=== PATIENT | female | born 1975 | race American Indian/Alaskan Native ===

== ENCOUNTER 2022-03-28 07:50 | Inpatient (IN) | payer SELFPAY ==
[2022-03-28 08:49] LABS: Hematocrit 28.3 % (30.3-42.9); Hemoglobin 8.7 gm/dl (10.1-14.3); Mean Corpuscular HGB Conc 31 % (30-34); Mean Corpuscular Volume 81 fl (79-97); Platelet Count 203 K/mm3 (140-440); Red Blood Count 3.51 M/mm3 (3.65-5.03)
[2022-03-28 08:53] LABS: Red Cell Distribution Width 25.4 % (13.2-15.2)
[2022-03-28 08:59] LABS: INR 1.03 (0.87-1.13)
[2022-03-28 09:14] LABS: Alanine Aminotransferase 35 units/L (7-56); Albumin 2.5 g/dL (3.9-5); Blood Urea Nitrogen 3 mg/dL (7-17); Calcium 7.8 mg/dL (8.4-10.2); Hemolysis Index 3
--- NOTE | 2022-03-28 09:14 | XRay Report ---
XR chest routine 2V INDICATION / CLINICAL INFORMATION: Dyspnea. COMPARISON: None available. FINDINGS: SUPPORT DEVICES: None. HEART /PULMONARY VASCULATURE: No significant abnormality. LUNGS / PLEURA: No acute pulmonary or pleural abnormality. No pneumothorax. ADDITIONAL FINDINGS: No significant additional findings. IMPRESSION: 1. No acute findings. Signer Name: Buzz Miranda MD Signed: 03/28/2022 9:10 AM Workstation Name: [id number]
[2022-03-28 09:15] LABS: BUN/Creatinine Ratio 6
[2022-03-28 10:50] LABS: Basophils % (Manual) 0 % (0.0-1.8); Total Cells Counted 100
[2022-03-28 10:55] LABS: Anisocytosis Few; Hypochromasia 1+; Large Platelets Rare; Macrocytosis Few; Platelet Estimate Consistent w Auto; Poikilocytosis 1+; Stomatocytes Rare; Target Cells 1+
[2022-03-28] MEDS ORDERED: POTASSIUM CHLORIDE ER 20 MEQ TAB PO ONE (15:31)
[2022-03-28] MEDS ORDERED: MORPHINE 4 MG/1 ML INJ IV ONE (15:32)
--- NOTE | 2022-03-28 15:37 | Emergency Department Report ---
ED General Adult HPI - General Chief complaint: Dyspnea/Respdistress Stated complaint: CHEST PAIN, SOB PUI?: No Time Seen by Provider: 03/28/22 15:08 Source: patient Mode of arrival: Ambulatory Limitations: No Limitations - History of Present Illness Initial comments: This is a pleasant 46-year-old female who denies medical history of diabetes hypertension or myocardial infarction came in today with concerns of 3-day history of chest pain which patient describes as sharp in the center of the midsternal area. According patient she was not doing anything with that started about 3 days ago. Patient states that it is worse when she takes deep breath. Patient denies chest pain radiate anywhere else. Patient denies any other associate symptoms or anything else makes it better what makes it worse. Patient current denies any other symptoms such as fever chill night sweat dizziness blurred vision lightheadedness headache tinnitus ear pain runny nose sore throat loss of taste loss of smell chest pain palpitation cough abdominal pain nausea vomiting diarrhea constipation joint pain muscle pain new rash and heat or cold intolerance. - Related Data Allergies Allergy/AdvReac Type Severity Reaction Status Date / Time No Known Allergies Allergy Unverified 03/28/22 08:33 ED Review of Systems ROS: Stated complaint: CHEST PAIN, SOB Other details as noted in HPI Comment: All other systems reviewed and negative Constitutional: no symptoms reported Eyes: as per HPI ENT: as per HPI Respiratory: no symptoms reported Cardiovascular: chest pain (SHARP THAT'S WORSE WITH TAKING BREATH) Endocrine: no symptoms reported Gastrointestinal: as per HPI Genitourinary: as per HPI Musculoskeletal: as per HPI Skin: as per HPI Neurological: as per HPI Psychiatric: as per HPI Hematological/Lymphatic: as per HPI ED Past Medical Hx - Past Medical History Previous Medical History?: No - Surgical History Past Surgical History?: No ED Physical Exam - General Limitations: No Limitations General appearance: alert, in no apparent distress - Head Head exam: Present: atraumatic, normocephalic, normal inspection - Eye Eye exam: Present: normal appearance, PERRL, EOMI Pupils: Present: normal accommodation - ENT ENT exam: Present: normal exam, normal orophraynx - Neck Neck exam: Present: normal inspection, full ROM - Respiratory Respiratory exam: Present: normal lung sounds bilaterally - Cardiovascular Cardiovascular Exam: Present: normal rhythm, tachycardia, normal heart sounds - GI/Abdominal GI/Abdominal exam: Present: soft, distended - Extremities Exam Extremities exam: Present: normal inspection, full ROM, normal capillary refill - Back Exam Back exam: Present: normal inspection, full ROM - Neurological Exam Neurological exam: Present: alert, altered, oriented X3, CN II-XII intact, normal gait - Psychiatric Psychiatric exam: Present: normal affect, normal mood - Skin Skin exam: Present: warm, dry, intact, normal color ED Course Vital Signs 03/28/22 03/28/22 03/28/22 08:28 14:46 14:50 Temperature 98.4 F Pulse Rate 106 H 102 H 103 H Respiratory 19 20 18 Rate Blood Pressure Blood Pressure 121/97 [Left] O2 Sat by Pulse 99 98 Oximetry 03/28/22 03/28/22 03/28/22 14:56 15:00 15:07 Temperature Pulse Rate 102 H 102 H 101 H Respiratory 25 H 18 20 Rate Blood Pressure 177/89 177/89 Blood Pressure [Left] O2 Sat by Pulse 99 100 99 Oximetry 03/28/22 03/28/22 03/28/22 15:11 15:15 15:21 Temperature Pulse Rate 104 H 101 H 104 H Respiratory 19 19 16 Rate Blood Pressure 160/90 160/90 162/104 Blood Pressure [Left] O2 Sat by Pulse 99 100 100 Oximetry 03/28/22 03/28/22 03/28/22 15:25 15:31 15:35 Temperature Pulse Rate 104 H 109 H 106 H Respiratory 17 32 H 24 Rate Blood Pressure 162/104 178/82 178/82 Blood Pressure [Left] O2 Sat by Pulse 100 98 99 Oximetry 03/28/22 03/28/22 03/28/22 15:41 15:45 15:51 Temperature Pulse Rate 109 H 107 H 109 H Respiratory 18 22 25 H Rate Blood Pressure 178/82 178/82 169/94 Blood Pressure [Left] O2 Sat by Pulse 99 100 100 Oximetry 03/28/22 03/28/22 03/28/22 15:55 16:01 16:05 Temperature Pulse Rate 113 H 110 H 110 H Respiratory 21 26 H 18 Rate Blood Pressure 169/94 169/94 169/94 Blood Pressure [Left] O2 Sat by Pulse 98 99 99 Oximetry 03/28/22 03/28/22 03/28/22 16:11 16:15 16:21 Temperature Pulse Rate 109 H 109 H 110 H Respiratory 19 22 20 Rate Blood Pressure 169/94 169/94 157/92 Blood Pressure [Left] O2 Sat by Pulse 99 100 99 Oximetry 03/28/22 03/28/22 03/28/22 16:25 16:31 16:35 Temperature Pulse Rate 110 H 110 H 109 H Respiratory 21 16 21 Rate Blood Pressure 157/92 157/92 157/92 Blood Pressure [Left] O2 Sat by Pulse 99 99 97 Oximetry 03/28/22 03/28/22 03/28/22 16:41 16:45 16:51 Temperature Pulse Rate 108 H 109 H 109 H Respiratory 17 20 19 Rate Blood Pressure 157/92 157/92 144/83 Blood Pressure [Left] O2 Sat by Pulse 99 97 99 Oximetry 03/28/22 03/28/22 03/28/22 16:55 17:01 17:05 Temperature Pulse Rate 107 H 113 H 109 H Respiratory 19 18 22 Rate Blood Pressure 144/83 144/83 144/83 Blood Pressure [Left] O2 Sat by Pulse 98 99 98 Oximetry 03/28/22 03/28/22 03/28/22 17:11 17:15 17:21 Temperature Pulse Rate 112 H 111 H 109 H Respiratory 18 23 21 Rate Blood Pressure 144/83 144/83 128/85 Blood Pressure [Left] O2 Sat by Pulse 98 99 98 Oximetry 03/28/22 03/28/22 03/28/22 17:25 17:31 17:35 Temperature Pulse Rate 109 H 109 H 113 H Respiratory 16 20 21 Rate Blood Pressure 128/85 128/85 128/85 Blood Pressure [Left] O2 Sat by Pulse 99 99 100 Oximetry 03/28/22 03/28/22 03/28/22 17:41 17:45 17:51 Temperature Pulse Rate 113 H 119 H 111 H Respiratory 22 17 17 Rate Blood Pressure 128/85 128/85 143/70 Blood Pressure [Left] O2 Sat by Pulse 100 97 99 Oximetry 03/28/22 03/28/22 03/28/22 17:55 18:01 18:05 Temperature Pulse Rate 109 H 112 H 111 H Respiratory 14 19 24 Rate Blood Pressure 143/70 143/70 143/70 Blood Pressure [Left] O2 Sat by Pulse 96 89 94 Oximetry 03/28/22 03/28/22 03/28/22 18:11 18:15 18:21 Temperature Pulse Rate 112 H 112 H 114 H Respiratory 35 H 30 H 26 H Rate Blood Pressure 143/70 143/70 128/71 Blood Pressure [Left] O2 Sat by Pulse 88 90 94 Oximetry 03/28/22 03/28/22 18:25 18:31 Temperature Pulse Rate 114 H 113 H Respiratory 32 H 16 Rate Blood Pressure 128/71 128/71 Blood Pressure [Left] O2 Sat by Pulse 93 90 Oximetry ED Medical Decision Making - Lab Data Result diagrams: 03/28/22 08:38 03/28/22 19:21 - EKG Data -: EKG Interpreted by Me (SINUS TACHY AT 100 WITH PRLONG QT INTERVAL 401 AND 518) EKG shows normal: sinus rhythm Rate: tachycardia Critical care attestation.: If time is entered above; I have spent that time in minutes in the direct care of this critically ill patient, excluding procedure time. ED Disposition Clinical Impression: Hypomagnesemia, Hypokalemia, Hypocalcemia, Prolonged QT interval, D-dimer, elevated Disposition: 09 ADMITTED INPATIENT Is pt being admited?: Yes Does the pt Need Aspirin: No Condition: Stable Time of Disposition: 23:14
[2022-03-28] MEDS ORDERED: MAGNESIUM SULFATE 3 GM in SODIUM CHLORIDE 0.9% 100 ML IV SCH (15:58)
[2022-03-28] MEDS ORDERED: POTASSIUM CHLORIDE 10 MEQ 10 MEQ/100 ML BAG IV SCH (16:00)
[2022-03-28] MEDS: POTASSIUM CHLORIDE 10 MEQ 10 MEQ/100 ML BAG IV SCH ×4 (16:25→20:43)
[2022-03-28] MEDS ORDERED: CALC GLUCONATE 1GM/NS 100 ML 1 GM/100 ML BAG IV SCH (17:00)
[2022-03-28] MEDS ORDERED: HYDROmorphone 0.5 MG/0.5 ML INJ IV ONE (17:32)
[2022-03-28] MEDS ORDERED: ONDANSETRON 4 MG/2 ML INJ IV ONE (17:33)
[2022-03-28 19:53] LABS: Alanine Aminotransferase 34 units/L (7-56); Albumin 2.6 g/dL (3.9-5); Blood Urea Nitrogen 5 mg/dL (7-17); Calcium 7.6 mg/dL (8.4-10.2); Hemolysis Index 0
[2022-03-28 19:58] LABS: BUN/Creatinine Ratio 10
--- NOTE | 2022-03-28 20:47 | Cat Scan Report ---
CTA CHEST WITH CONTRAST INDICATION / CLINICAL INFORMATION: sob + ddimer. TECHNIQUE: Axial CT images were obtained through the chest after injection of IV contrast. 3 plane TN P and/or 3D reconstructions were produced. All CT scans at this location are performed using CT dose reduction for ALARA by means of automated exposure control. COMPARISON: None available. FINDINGS: PULMONARY EMBOLUS: None. THORACIC AORTA: No significant abnormality. HEART: No significant abnormality. CORONARY ARTERY CALCIFICATION: Absent -- None. MEDIASTINUM / SHERRY: No significant abnormality. PLEURA: No pleural effusion. No pneumothorax. LUNGS: No acute air space or interstitial disease. ADDITIONAL FINDINGS: None. UPPER ABDOMEN: Hepatic steatosis and gallstones. SKELETAL STRUCTURES: No significant osseous abnormality. IMPRESSION: 1. No CT evidence for pulmonary embolism. 2. No acute findings. 3. Hepatic steatosis and cholelithiasis. Signer Name: Juan Antonio Portillo MD Signed: 03/28/2022 8:43 PM Workstation Name: [id number]
[2022-03-28] MEDS ORDERED: MORPHINE 2 MG/1 ML INJ IV ONE (20:50)
[2022-03-28] MEDS ORDERED: PROMETHAZINE 25 MG TAB PO ONE (21:03)
[2022-03-28 21:49] LABS: Creatine Kinase MB 1.5 ng/mL (0.0-4.0)
[2022-03-28] MEDS: ENOXAPARIN 100 MG/1 ML INJ SUB-Q SCH (21:56)
[2022-03-28] MEDS ORDERED: MORPHINE 4 MG/1 ML INJ IV PRN ×2 (23:16)
[2022-03-28] MEDS ORDERED: ACETAMINOPHEN 325 MG TAB PO PRN ×2 (23:16)
[2022-03-28] MEDS ORDERED: DEXTROSE 50% IN WATER (25GM) 50 ML SYRINGE IV PRN (23:16)
[2022-03-28] MEDS ORDERED: MAGNESIUM HYDROXIDE (MOM) ORAL LIQD UDC PO PRN (23:16)
[2022-03-28] MEDS ORDERED: MORPHINE 2 MG/1 ML INJ IV PRN (23:16)
[2022-03-28] MEDS ORDERED: NITROGLYCERIN 0.4 MG TAB SUBL SL PRN (23:16)
[2022-03-28] MEDS ORDERED: ONDANSETRON 4 MG/2 ML INJ IV PRN (23:16)
[2022-03-28] MEDS ORDERED: traMADol 50 MG TAB PO PRN (23:16)
--- NOTE | 2022-03-28 23:30 | History and Physical Report ---
History of Present Illness Date of examination: 03/28/22 Date of admission: 03/28/2022 Chief complaint: Chest Pain History of present illness: 46-year-old -[place] female with known history of hypertension, diabetes mellitus presenting to the emergency room today with a 3-day history of chest pain. Chest pain is said to be midsternal, sharp and that remained constant. Pain is occasionally worse upon taking a deep breath. Denies any radiation. Patient denies any headache or dizziness and denies any diaphoresis. She indicates she has been having nausea and vomiting for the past 3 days but denies any diarrhea. She denies any sick contacts and no recent travel and no contact with anyone with COVID-19. She denies any fever or chills. Work-up in the emergency room today, lab was significant for hemoglobin of 8.7 and hematocrit of 28.3 potassium of 2.8, AST of 126, magnesium of 1.2 and calcium of 7.8. Chest x-ray unremarkable. CT angiogram of the chest was negative for pulmonary embolism. However there is hepatic steatosis and cholelithiasis. Past History Past Surgical History: Other (Gastric Bypass) Family history: no significant family history Medications and Allergies Allergies Allergy/AdvReac Type Severity Reaction Status Date / Time No Known Allergies Allergy Unverified 03/28/22 08:33 Active Meds: Active Medications Acetaminophen (Acetaminophen 325 Mg Tab) 650 mg PO Q4H PRN PRN Reason: Pain MILD(1-3)/Fever >100.5/JANG Acetaminophen (Acetaminophen 325 Mg Tab) 650 mg PO Q6H PRN PRN Reason: Pain, Mild (1-3) Aspirin (Aspirin Ec 325 Mg Tab) 325 mg PO QDAY ASHLEY Dextrose (Dextrose 50% In Water (25gm) 50 Ml Syringe) 50 ml IV Q30MIN PRN; Protocol PRN Reason: Hypoglycemia Dextrose (Dextrose 50% In Water (25gm) 50 Ml Syringe) 50 ml IV Q30MIN PRN; Protocol PRN Reason: Hypoglycemia Enoxaparin Sodium (Enoxaparin 100 Mg/1 Ml Inj) 90 mg 1 mg/kg (90 mg) SUB-Q Q12HR ASHLEY; Protocol Last Admin: 03/28/22 21:56 Dose: 90 mg CALC GLUCONATE 1GM/NS 100 ML (Calcium Gluonate/Ns 1,000mg/100ml) 1 gm in 100 mls @ 660 mls/hr IV ONCE ASHLEY Last Admin: 03/28/22 17:29 Dose: 660 mls/hr Insulin Human Lispro (Insulin Lispro 100 Unit/Ml) 0 unit SUB-Q ACHS ASHLEY; Protocol Insulin Human Regular (Insulin Regular, Human 100 Units/1 Ml) 0 units SUB-Q ACHS ASHLEY; Protocol Magnesium Hydroxide (Magnesium Hydroxide (Mom) Oral Liqd Udc) 30 ml PO Q4H PRN PRN Reason: Constipation Morphine Sulfate (Morphine 2 Mg/1 Ml Inj) 2 mg IV Q4H PRN PRN Reason: Pain, Moderate (4-6) Morphine Sulfate (Morphine 4 Mg/1 Ml Inj) 4 mg IV Q4H PRN PRN Reason: Pain , Severe (7-10) Morphine Sulfate (Morphine 4 Mg/1 Ml Inj) 2 mg IV Q5MIN PRN PRN Reason: Chest Pain unrelieved by NTG Nitroglycerin (Nitroglycerin 0.4 Mg Tab Subl) 0.4 mg SL Q5M PRN PRN Reason: Chest Pain Ondansetron HCl (Ondansetron 4 Mg/2 Ml Inj) 4 mg IV Q8H PRN PRN Reason: Nausea And Vomiting Sodium Chloride (Sodium Chloride 0.9% 10 Ml Flush Syringe) 10 ml IV BID ASHLEY Sodium Chloride (Sodium Chloride 0.9% 10 Ml Flush Syringe) 10 ml IV PRN PRN PRN Reason: LINE FLUSH Sodium Chloride (Sodium Chloride 0.9% 10 Ml Flush Syringe) 10 ml IV PRN PRN PRN Reason: LINE FLUSH Tramadol HCl (Tramadol 50 Mg Tab) 50 mg PO Q6H PRN PRN Reason: Pain, Moderate (4-6) Review of Systems Constitutional: no fever, no chills Ears, nose, mouth and throat: no nasal congestion, no sore throat Cardiovascular: chest pain, no palpitations Respiratory: no cough, no shortness of breath Gastrointestinal: nausea, vomiting, diarrhea Genitourinary Female: no pelvic pain, no flank pain, no dysuria Musculoskeletal: no neck pain, no low back pain Integumentary: no rash, no pruritis Neurological: no headaches, no confusion Psychiatric: no anxiety, no depression Endocrine: no polyphagia, no excessive thirst, no polydipsia, no polyuria, no nocturia Exam - Constitutional Vitals: Temp Pulse Resp BP Pulse Ox 98.4 F 113 H 16 128/71 90 03/28/22 08:28 03/28/22 18:31 03/28/22 18:31 03/28/22 18:31 03/28/22 18:31 General appearance: Present: no acute distress, well-nourished - EENT Eyes: Present: PERRL, EOM intact. Absent: scleral icterus ENT: hearing intact, clear oral mucosa, dentition normal - Neck Neck: Present: supple, normal ROM - Respiratory Respiratory effort: normal Respiratory: bilateral: CTA - Cardiovascular Rhythm: regular Heart Sounds: Present: S1 & S2. Absent: gallop, systolic murmur, diastolic murmur, rub, click - Extremities Extremities: no ischemia, pulses intact, pulses symmetrical, normal temperature, normal color, Full ROM Extremity abnormal: edema (Trace bilateral lower extremity edema) Peripheral Pulses: within normal limits - Abdominal General gastrointestinal: Present: soft, non-tender, distended, normal bowel sounds. Absent: mass - Integumentary Integumentary: Present: clear, warm, dry, normal turgor. Absent: rash - Musculoskeletal Musculoskeletal: strength equal bilaterally - Psychiatric Psychiatric: appropriate mood/affect, intact judgment & insight, memory intact, cooperative - Neurologic Neurologic: CNII-XII intact, no focal deficits, moves all extremities HEART Score - HEART Score Troponin: Troponin T < 0.010 ng/mL (0.00-0.029) 03/28/22 15:18 Results - Labs CBC & Chem 7: 03/28/22 08:38 03/28/22 23:43 Labs: Abnormal lab results 03/28/22 03/28/22 03/28/22 Range/Units 08:38 08:38 15:18 RBC 3.51 L (3.65-5.03) M/mm3 Hgb 8.7 L (10.1-14.3) gm/dl Hct 28.3 L (30.3-42.9) % MCH 25 L (28-32) pg RDW 25.4 H (13.2-15.2) % Seg Neuts % (Manual) 89.0 H (40.0-70.0) % Lymphocytes % (Manual) 6.0 L (13.4-35.0) % Nucleated RBC % 1.0 H (0.0-0.9) % Lymphocytes # (Manual) 0.5 L (1.2-5.4) K/mm3 D-Dimer (0-234) ng/mlDDU Potassium 2.8 L* (3.6-5.0) mmol/L Chloride 97.7 L (98-107) mmol/L BUN 3 L (7-17) mg/dL Creatinine 0.5 L (0.6-1.2) mg/dL Glucose 113 H (65-100) mg/dL Calcium 7.8 L (8.4-10.2) mg/dL Magnesium 1.20 L (1.7-2.3) mg/dL Total Bilirubin 1.60 H (0.1-1.2) mg/dL AST 126 H (5-40) units/L Alkaline Phosphatase 305 H (35-129) units/L Albumin 2.5 L (3.9-5) g/dL 03/28/22 03/28/22 Range/Units 16:12 19:21 RBC (3.65-5.03) M/mm3 Hgb (10.1-14.3) gm/dl Hct (30.3-42.9) % MCH (28-32) pg RDW (13.2-15.2) % Seg Neuts % (Manual) (40.0-70.0) % Lymphocytes % (Manual) (13.4-35.0) % Nucleated RBC % (0.0-0.9) % Lymphocytes # (Manual) (1.2-5.4) K/mm3 D-Dimer 360.67 H (0-234) ng/mlDDU Potassium 2.8 L* (3.6-5.0) mmol/L Chloride 96.9 L (98-107) mmol/L BUN 5 L (7-17) mg/dL Creatinine 0.5 L (0.6-1.2) mg/dL Glucose (65-100) mg/dL Calcium 7.6 L (8.4-10.2) mg/dL Magnesium 1.10 L (1.7-2.3) mg/dL Total Bilirubin 1.50 H (0.1-1.2) mg/dL AST 115 H (5-40) units/L Alkaline Phosphatase 326 H (35-129) units/L Albumin 2.6 L (3.9-5) g/dL Assessment and Plan Assessment: 1. Chest pain 2. Hypokalemia 3. Hypomagnesemia 4. Hypocalcemia 5. Elevated liver enzymes 6. Abnormal EKG 7. Diabetes mellitus 8. Hypertension Plan: 1. Patient admitted and placed on telemetry. 2. We will check serial cardiac enzymes. Patient placed on daily aspirin, sublingual nitroglycerin and IV morphine as needed for chest pain. 3. Cardiology evaluation requested. 4. We will replete electrolytes and monitor chemistry. 5. We will resume routine home medications and monitor vital signs closely. 6. Patient placed on sliding scale insulin. We will monitor Accu-Cheks. DVT prophylaxis: Subcutaneous heparin CODE STATUS: Full code
[2022-03-29 00:14] LABS: Blood Urea Nitrogen 5 mg/dL (7-17); Calcium 7.9 mg/dL (8.4-10.2); Hemolysis Index 76
[2022-03-29 00:17] LABS: BUN/Creatinine Ratio 8
[2022-03-29 05:12] LABS: Hematocrit 24.4 % (30.3-42.9); Hemoglobin 7.7 gm/dl (10.1-14.3); Mean Corpuscular HGB Conc 31 % (30-34); Mean Corpuscular Volume 81 fl (79-97); Platelet Count 186 K/mm3 (140-440); Red Blood Count 3.02 M/mm3 (3.65-5.03)
[2022-03-29 05:19] LABS: Red Cell Distribution Width 25.9 % (13.2-15.2)
[2022-03-29 05:20] LABS: BUN/Creatinine Ratio 8; Blood Urea Nitrogen 5 mg/dL (7-17); Calcium 7.8 mg/dL (8.4-10.2); Hemolysis Index 5
[2022-03-29] MEDS ORDERED: INSULIN REGULAR, HUMAN 100 UNITS/1 ML SUB-Q SCH (07:30)
[2022-03-29] MEDS: INSULIN LISPRO 100 UNIT/ML SUB-Q SCH ×4 (08:00→21:42)
[2022-03-29 08:10] LABS: Anisocytosis 2+; Basophils % (Manual) 0 % (0.0-1.8); Eosinophils % (Manual) 0 % (0.0-4.3); Monocytes % (Manual) 0 % (0.0-7.3); Total Cells Counted 100
[2022-03-29 08:11] LABS: Hypochromasia 1+; Platelet Estimate Consistent w Auto; Poikilocytosis 1+; Target Cells 1+
[2022-03-29] MEDS ORDERED: REGADENOSON 0.4 MG/5 ML INJ IV ONE (08:22)
[2022-03-29] MEDS ORDERED: MAGNESIUM SULFATE 2 GM/50 ML BAG IV ONE (09:00)
[2022-03-29] MEDS: ASPIRIN EC 325 MG TAB PO SCH (12:00)
[2022-03-29] MEDS: ENOXAPARIN 100 MG/1 ML INJ SUB-Q SCH (12:06)
--- NOTE | 2022-03-29 12:40 | Consultation ---
History of Present Illness Consult date: 03/29/22 Consult reason: chest pain History of present illness: The patient is a 46-year-old woman who presented to the hospital with poorly characterized, atypical, nonexertional chest pain. Serial ECGs have shown a normal sinus rhythm with mild early repolarization changes, normal ECGs. Troponin levels x3 were normal. Patient has completed a Lexiscan thallium stress test ordered by the medical service, results are pending. Past History Past Surgical History: Other (Gastric Bypass) Family history: no significant family history Medications and Allergies Allergies Allergy/AdvReac Type Severity Reaction Status Date / Time No Known Allergies Allergy Unverified 03/28/22 08:33 Active Meds: Active Medications Acetaminophen (Acetaminophen 325 Mg Tab) 650 mg PO Q4H PRN PRN Reason: Pain MILD(1-3)/Fever >100.5/JANG Aspirin (Aspirin Ec 325 Mg Tab) 325 mg PO QDAY ASHLEY Last Admin: 03/29/22 12:00 Dose: Not Given Dextrose (Dextrose 50% In Water (25gm) 50 Ml Syringe) 50 ml IV Q30MIN PRN; Protocol PRN Reason: Hypoglycemia Enoxaparin Sodium (Enoxaparin 100 Mg/1 Ml Inj) 90 mg 1 mg/kg (90 mg) SUB-Q Q12HR ASHLEY; Protocol Last Admin: 03/29/22 12:06 Dose: 90 mg Insulin Human Lispro (Insulin Lispro 100 Unit/Ml) 0 unit SUB-Q ACHS ASHLEY; Protocol Last Admin: 03/29/22 08:00 Dose: Not Given Magnesium Hydroxide (Magnesium Hydroxide (Mom) Oral Liqd Udc) 30 ml PO Q4H PRN PRN Reason: Constipation Morphine Sulfate (Morphine 2 Mg/1 Ml Inj) 2 mg IV Q4H PRN PRN Reason: Pain, Moderate (4-6) Last Admin: 03/29/22 02:09 Dose: 2 mg Morphine Sulfate (Morphine 4 Mg/1 Ml Inj) 4 mg IV Q4H PRN PRN Reason: Pain , Severe (7-10) Morphine Sulfate (Morphine 4 Mg/1 Ml Inj) 2 mg IV Q5MIN PRN PRN Reason: Chest Pain unrelieved by NTG Nitroglycerin (Nitroglycerin 0.4 Mg Tab Subl) 0.4 mg SL Q5M PRN PRN Reason: Chest Pain Ondansetron HCl (Ondansetron 4 Mg/2 Ml Inj) 4 mg IV Q8H PRN PRN Reason: Nausea And Vomiting Sodium Chloride (Sodium Chloride 0.9% 10 Ml Flush Syringe) 10 ml IV BID ASHLEY Last Admin: 03/29/22 12:07 Dose: 10 ml Sodium Chloride (Sodium Chloride 0.9% 10 Ml Flush Syringe) 10 ml IV PRN PRN PRN Reason: LINE FLUSH Tramadol HCl (Tramadol 50 Mg Tab) 50 mg PO Q6H PRN PRN Reason: Pain, Moderate (4-6) Review of Systems Cardiovascular: chest pain, shortness of breath, no orthopnea, no palpitations, no rapid/irregular heart beat, no edema, no syncope, no lightheadedness Physical Examination Vital Signs Temp Pulse Resp BP Pulse Ox 98.4 F 106 H 19 121/97 99 03/28/22 08:28 03/28/22 08:28 03/28/22 08:28 03/28/22 08:28 03/28/22 08:28 General appearance: no acute distress HEENT: Positive: PERRL Neck: Positive: neck supple Cardiac: Positive: Reg Rate and Rhythm Lungs: Positive: clear to auscultation Neuro: Positive: Grossly Intact Abdomen: Positive: Soft Female genitourinary: deferred Skin: Positive: Clear Extremities: Absent: edema Results 03/29/22 04:24 03/29/22 04:24 Cardiac Enzymes 03/28/22 03/28/22 03/28/22 Range/Units 08:38 19:21 19:21 AST 126 H 115 H (5-40) units/L CK-MB (CK-2) 1.5 (0.0-4.0) ng/mL CBC 03/28/22 03/29/22 Range/Units 08:38 04:24 WBC 7.8 7.9 (4.5-11.0) K/mm3 RBC 3.51 L 3.02 L (3.65-5.03) M/mm3 Hgb 8.7 L 7.7 L (10.1-14.3) gm/dl Hct 28.3 L 24.4 L (30.3-42.9) % Plt Count 203 186 (140-440) K/mm3 Comprehensive Metabolic Panel 03/28/22 03/28/22 03/28/22 Range/Units 08:38 19:21 23:43 Sodium 140 140 136 L (137-145) mmol/L Potassium 2.8 L* 2.8 L* 4.0 D (3.6-5.0) mmol/L Chloride 97.7 L 96.9 L 100.3 (98-107) mmol/L Carbon Dioxide 23 25 23 (22-30) mmol/L BUN 3 L 5 L 5 L (7-17) mg/dL Creatinine 0.5 L 0.5 L 0.6 (0.6-1.2) mg/dL Glucose 113 H 82 103 H (65-100) mg/dL Calcium 7.8 L 7.6 L 7.9 L (8.4-10.2) mg/dL AST 126 H 115 H (5-40) units/L ALT 35 34 (7-56) units/L Alkaline Phosphatase 305 H 326 H (35-129) units/L Total Protein 7.0 6.8 (6.3-8.2) g/dL Albumin 2.5 L 2.6 L (3.9-5) g/dL 03/29/22 Range/Units 04:24 Sodium 137 (137-145) mmol/L Potassium 3.6 (3.6-5.0) mmol/L Chloride 101.0 (98-107) mmol/L Carbon Dioxide 26 (22-30) mmol/L BUN 5 L (7-17) mg/dL Creatinine 0.6 (0.6-1.2) mg/dL Glucose 85 (65-100) mg/dL Calcium 7.8 L (8.4-10.2) mg/dL AST (5-40) units/L ALT (7-56) units/L Alkaline Phosphatase (35-129) units/L Total Protein (6.3-8.2) g/dL Albumin (3.9-5) g/dL EKG interpretations - Telemetry EKG Rhythm: Sinus Rhythm (With mild early repolarization changes, normal ECG) Assessment and Plan - Patient Problems (1) Atypical chest pain Current Visit: Yes Status: Acute Plan to address problem: Patient presented with atypical chest pain, serial ECGs are normal, serial troponin levels x3 were normal. She has completed a Lexiscan thallium stress test, results are pending.
--- NOTE | 2022-03-29 13:34 | Progress Note ---
Assessment and Plan Assessment and plan: #Atypical chest pain -given patient description, pain appears to be more epigastric in nature -trial of pepcid -troponin negative x2 -telemetry floor -TTE: LVEF 50-55%, mild pulm HTN -stress test completed, results pending #Elevated liver enzymes #Severe abdominal pain -AST/ALT 2:1; patient denies alcohol abuse -CT abd shows severe hepatic steatosis -lipid and acute hepatitis panel ordered -repeat CMP in AM #Type II Diabetes mellitus -SSI + accuchecks #Hypertension -will restart home medications pending med reconciliation #Hypokalemia #Hypomagnesemia #Hypocalcemia -will replete and monitor #Obesity #History of gastric bypass surgery - Counseled patient on the importance of weight loss, incorporating exercise, and dietary changes (lean meats, fresh fruits and vegetables, and water intake). Patient expresses understanding. - Time: +15 min #Advanced care planning -Disease education conducted, care plan discussed, diagnoses discussed, prognosis discussed, and patient acknowledges understanding with care plan -Time: +30 min History Interval history: No acute events. Patient returned from stress test. She is screaming out in pain. She states "flood my stomach and swelling hurts really bad". She denies chest pain shortness of breath. Hospitalist Physical - Physical exam Narrative exam: GENERAL: Obese woman. Lying in bed, uncomfortable. HEENT: Normocephalic. Atraumatic. NECK: Supple. CHEST/LUNGS: CTAB on room air HEART/CARDIOVASCULAR: RRR. No murmur, rubs or gallops appreciated. ABDOMEN: +BS. NT/ND. SKIN: No rashes noted. NEURO: No focal motor deficit. Follows all commands. MUSCULOSKELETAL: No joint effusion EXTREMITIES: No cyanosis, clubbing or edema. PSYCH: Cooperative. - Constitutional Vitals: Temp Pulse Resp BP Pulse Ox 98.2 F 98 H 20 130/85 98 03/29/22 04:49 03/29/22 04:49 03/29/22 04:49 03/29/22 10:04 03/29/22 04:49 General appearance: Present: no acute distress HEART Score - HEART Score Troponin: Troponin T < 0.010 ng/mL (0.00-0.029) 03/29/22 04:24 Results - Labs CBC & Chem 7: 03/29/22 04:24 06/23/22 04:24 Labs: Laboratory Last Values WBC 7.9 K/mm3 (4.5-11.0) 03/29/22 04:24 RBC 3.02 M/mm3 (3.65-5.03) L 03/29/22 04:24 Hgb 7.7 gm/dl (10.1-14.3) L 03/29/22 04:24 Hct 24.4 % (30.3-42.9) L 03/29/22 04:24 MCV 81 fl (79-97) 03/29/22 04:24 MCH 25 pg (28-32) L 03/29/22 04:24 MCHC 31 % (30-34) 03/29/22 04:24 RDW 25.9 % (13.2-15.2) H 03/29/22 04:24 Plt Count 186 K/mm3 (140-440) 03/29/22 04:24 Add Manual Diff Complete 03/29/22 04:24 Total Counted 100 03/29/22 04:24 Seg Neuts % (Manual) 86.0 % (40.0-70.0) H 03/29/22 04:24 Band Neutrophils % 0 % 03/29/22 04:24 Lymphocytes % (Manual) 14.0 % (13.4-35.0) 03/29/22 04:24 Reactive Lymphs % (Man) 0 % 03/29/22 04:24 Monocytes % (Manual) 0 % (0.0-7.3) 03/29/22 04:24 Eosinophils % (Manual) 0 % (0.0-4.3) 03/29/22 04:24 Basophils % (Manual) 0 % (0.0-1.8) 03/29/22 04:24 Metamyelocytes % 0 % 03/29/22 04:24 Myelocytes % 0 % 03/29/22 04:24 Promyelocytes % 0 % 03/29/22 04:24 Blast Cells % 0 % 03/29/22 04:24 Nucleated RBC % 1.0 % (0.0-0.9) H 03/29/22 04:24 Seg Neutrophils # Man 6.8 K/mm3 (1.8-7.7) 03/29/22 04:24 Band Neutrophils # 0.0 K/mm3 03/29/22 04:24 Lymphocytes # (Manual) 1.1 K/mm3 (1.2-5.4) L 03/29/22 04:24 Abs React Lymphs (Man) 0.0 K/mm3 03/29/22 04:24 Monocytes # (Manual) 0.0 K/mm3 (0.0-0.8) 03/29/22 04:24 Eosinophils # (Manual) 0.0 K/mm3 (0.0-0.4) 03/29/22 04:24 Basophils # (Manual) 0.0 K/mm3 (0.0-0.1) 03/29/22 04:24 Metamyelocytes # 0.0 K/mm3 03/29/22 04:24 Myelocytes # 0.0 K/mm3 03/29/22 04:24 Promyelocytes # 0.0 K/mm3 03/29/22 04:24 Blast Cells # 0.0 K/mm3 03/29/22 04:24 WBC Morphology Not Reportable 03/29/22 04:24 Hypersegmented Neuts Not Reportable 03/29/22 04:24 Hyposegmented Neuts Not Reportable 03/29/22 04:24 Hypogranular Neuts Not Reportable 03/29/22 04:24 Smudge Cells Not Reportable 03/29/22 04:24 Toxic Granulation Not Reportable 03/29/22 04:24 Toxic Vacuolation Not Reportable 03/29/22 04:24 Dohle Bodies Not Reportable 03/29/22 04:24 Pelger-Huet Anomaly Not Reportable 03/29/22 04:24 Sara Rods Not Reportable 03/29/22 04:24 Platelet Estimate Consistent w auto 03/29/22 04:24 Clumped Platelets Not Reportable 03/29/22 04:24 Plt Clumps, EDTA Not Reportable 03/29/22 04:24 Large Platelets Not Reportable 03/29/22 04:24 Giant Platelets Not Reportable 03/29/22 04:24 Platelet Satelliting Not Reportable 03/29/22 04:24 Plt Morphology Comment Not Reportable 03/29/22 04:24 RBC Morphology Not Reportable 03/29/22 04:24 Dimorphic RBCs Not Reportable 03/29/22 04:24 Polychromasia Not Reportable 03/29/22 04:24 Hypochromasia 1+ 03/29/22 04:24 Poikilocytosis 1+ 03/29/22 04:24 Anisocytosis 2+ 03/29/22 04:24 Microcytosis Few 03/29/22 04:24 Macrocytosis Not Reportable 03/29/22 04:24 Spherocytes Not Reportable 03/29/22 04:24 Pappenheimer Bodies Not Reportable 03/29/22 04:24 Sickle Cells Not Reportable 03/29/22 04:24 Target Cells 1+ 03/29/22 04:24 Tear Drop Cells Not Reportable 03/29/22 04:24 Ovalocytes Not Reportable 03/29/22 04:24 Stomatocytes Rare 03/28/22 08:38 Helmet Cells Not Reportable 03/29/22 04:24 [place] Bodies Not Reportable 03/29/22 04:24 [place] Rings Not Reportable 03/29/22 04:24 Karie Cells Not Reportable 03/29/22 04:24 Bite Cells Not Reportable 03/29/22 04:24 Crenated Cell Not Reportable 03/29/22 04:24 Elliptocytes Not Reportable 03/29/22 04:24 Acanthocytes (Spur) Not Reportable 03/29/22 04:24 Rouleaux Not Reportable 03/29/22 04:24 Hemoglobin C Crystals Not Reportable 03/29/22 04:24 Schistocytes Not Reportable 03/29/22 04:24 Malaria parasites Not Reportable 03/29/22 04:24 Yoan Bodies Not Reportable 03/29/22 04:24 Hem Pathologist Commnt No 03/29/22 04:24 PT 14.7 Sec. (12.2-14.9) 03/28/22 08:38 INR 1.03 (0.87-1.13) 03/28/22 08:38 APTT 34.0 Sec. (24.2-36.6) 03/28/22 08:38 D-Dimer 360.67 ng/mlDDU (0-234) H 03/28/22 16:12 Sodium 137 mmol/L (137-145) 03/29/22 04:24 Potassium 3.6 mmol/L (3.6-5.0) 03/29/22 04:24 Chloride 101.0 mmol/L (98-107) 03/29/22 04:24 Carbon Dioxide 26 mmol/L (22-30) 03/29/22 04:24 Anion Gap 14 mmol/L 03/29/22 04:24 BUN 5 mg/dL (7-17) L 03/29/22 04:24 Creatinine 0.6 mg/dL (0.6-1.2) 03/29/22 04:24 Estimated GFR > 60 ml/min 03/29/22 04:24 BUN/Creatinine Ratio 8 % 03/29/22 04:24 Glucose 85 mg/dL (65-100) 03/29/22 04:24 POC Glucose 95 mg/dL (70-105) 03/29/22 12:35 Calcium 7.8 mg/dL (8.4-10.2) L 03/29/22 04:24 Magnesium 1.10 mg/dL (1.7-2.3) L 03/28/22 19:21 Total Bilirubin 1.50 mg/dL (0.1-1.2) H 03/28/22 19:21 AST 115 units/L (5-40) H 03/28/22 19:21 ALT 34 units/L (7-56) 03/28/22 19:21 Alkaline Phosphatase 326 units/L (35-129) H 03/28/22 19:21 Total Creatine Kinase 50 units/L (30-135) 03/28/22 19:21 CK-MB (CK-2) 1.5 ng/mL (0.0-4.0) 03/28/22 19:21 CK-MB (CK-2) Rel Index 3.0 (0-4) 03/28/22 19:21 Troponin T < 0.010 ng/mL (0.00-0.029) 03/29/22 04:24 Total Protein 6.8 g/dL (6.3-8.2) 03/28/22 19:21 Albumin 2.6 g/dL (3.9-5) L 03/28/22 19:21 Albumin/Globulin Ratio 0.6 % 03/28/22 19:21 Herrera/IV: Voiding Method Toilet Active Medications - Current Medications Current Medications: Generic Name Dose Route Start Last Admin Trade Name Freq PRN Reason Stop Dose Admin Acetaminophen 650 mg 03/28/22 23:16 Acetaminophen 325 Mg Tab PO Q4H PRN Pain MILD(1-3)/Fever >100.5/JANG Aspirin 325 mg 03/29/22 10:00 03/29/22 12:00 Aspirin Ec 325 Mg Tab PO Not Given QDAY ASHLEY Dextrose 50 ml 03/28/22 23:16 Dextrose 50% In Water (25gm) 50 Ml Syringe IV Q30MIN PRN Hypoglycemia Protocol Enoxaparin Sodium 90 mg 03/28/22 22:00 03/29/22 12:06 Enoxaparin 100 Mg/1 Ml Inj 1 mg/kg (90 mg) 90 mg SUB-Q Administration Q12HR [facility] Protocol Insulin Human Lispro 0 unit 03/29/22 07:30 03/29/22 13:00 Insulin Lispro 100 Unit/Ml SUB-Q Not Given ACHS [facility] Protocol Magnesium Hydroxide 30 ml 03/28/22 23:16 Magnesium Hydroxide (Mom) Oral Liqd Udc PO Q4H PRN Constipation Morphine Sulfate 2 mg 03/28/22 23:16 03/29/22 02:09 Morphine 2 Mg/1 Ml Inj IV 2 mg Q4H PRN Administration Pain, Moderate (4-6) Morphine Sulfate 4 mg 03/28/22 23:16 03/29/22 13:00 Morphine 4 Mg/1 Ml Inj IV 4 mg Q4H PRN Administration Pain , Severe (7-10) Morphine Sulfate 2 mg 03/28/22 23:16 Morphine 4 Mg/1 Ml Inj IV Q5MIN PRN Chest Pain unrelieved by NTG Nitroglycerin 0.4 mg 03/28/22 23:16 Nitroglycerin 0.4 Mg Tab Subl SL Q5M PRN Chest Pain Ondansetron HCl 4 mg 03/28/22 23:16 Ondansetron 4 Mg/2 Ml Inj IV Q8H PRN Nausea And Vomiting Sodium Chloride 10 ml 03/29/22 10:00 03/29/22 12:07 Sodium Chloride 0.9% 10 Ml Flush Syringe IV 10 ml BID ASHLEY Administration Sodium Chloride 10 ml 03/28/22 23:16 Sodium Chloride 0.9% 10 Ml Flush Syringe IV PRN PRN LINE FLUSH Tramadol HCl 50 mg 03/28/22 23:16 Tramadol 50 Mg Tab PO Q6H PRN Pain, Moderate (4-6)
--- NOTE | 2022-03-29 14:23 | Nuclear Medicine Report ---
APPROVED REPORT Exam: Nuclear Stress Test Indication: [facility] pain [facility] Ht: 5 ft 9 in Wt: 260 lbs BSA: 2.31 m2 HR: 90 bpmBP: 151/88 mmHgBMI: 38.39 Rhythm: SINUS RHYTHM WITH SHORT [place] INTERVAL Stress Test Details Stress Test: Pharmacologic stress testing performed using 0.4 mg of regadenoson per 5 mL given IV over 10 seconds. Reason for pharmacologic stress test: physical limitation. HR Resting HR: 90 bpm Max HR Achieved: 106 bpm Max Heart Rate (APMHR): 174 bpm Target HR (85% APMHR): 147 bpm % of APMHR: 60 Recovery HR: 106 bpm BP Resting BP: 151/76 mmHg Max BP: 151/88 mmHg Recovery BP: 132/78 mmHg ECG Resting ECG: SINUS RHYTHM WITH SHORT [place] INTERVAL Stress ECG: Sinus Tachycardia ST Change: None Arrhythmia: None Recovery ECG: Sinus Rhythm Recovery ST Change: None Clinical Reason for Termination: Completed protocol Stress Symptoms: None Exercise duration: 1 min sec Stress ECG Conclusion No chest pain, no ST changes of ischemia with pharmacologic stress. Myocardial perfusion images are pending. NM EXAM: Myocardial Perfusion REST/STRESS Imaging Protocol: Rest Tc-99m/Stress Tc-99m 1 day Resting Data Rest SPECT myocardial perfusion imaging was performed in supine position 45 minutes following the intravenous injection of 10 mCi of Tc-99m Myoview. Time of rest injection: 0700 Pharmacologic Stress Pharmacologic stress test was performed by injecting Regadenoson 0.4 mg IV push followed by the intravenous injection of 28 mCi of Tc-99m Myoview. Time of stress injection: 1000 Gated Stress SPECT was performed 30 minutes after stress injection. The images were gated to evaluate regional wall motion and calculate left ventricular ejection fraction. Study Quality Study: excellent Lung Uptake: Normal Study Data TID = 1.10. Perfusion Wall Motion The rest and stress images show normal left ventricular systolic function, ejection fraction 71%. There is a area of hypokinesis in the segment of the wall which is seen on . Nuclear Conclusion ECG Findings: negative for ischemia Clinical Findings: negative for ischemia Nuclear Findings: negative for ischemia Left Ventricular Function: normal Risk Study: low Normal rest and stress myocardial perfusion study, normal left ventricular systolic function, ejection fraction 71%. Conclusion No chest pain, no ST changes of ischemia with pharmacologic stress. Myocardial perfusion images are pending.
--- NOTE | 2022-03-29 14:24 | Event Note ---
Date: 03/29/22 [facility] thallium stress test shows normal rest and stress perfusion images, normal left ventricular systolic function with ejection fraction 71%. Normal study.
--- NOTE | 2022-03-29 15:33 | Cat Scan Report ---
CT ABDOMEN AND PELVIS WITHOUT CONTRAST INDICATION / CLINICAL INFORMATION: ABDOMINAL PAIN/SWELLING. TECHNIQUE: Axial CT images were obtained through the abdomen and pelvis without IV contrast. All CT scans at [facility] location are performed using CT dose reduction for ALARA by means of automated exposure control. COMPARISON: None available. FINDINGS: LOWER CHEST: No significant abnormality. LIVER: Severe fatty liver. GALLBLADDER: Cholelithiasis. BILE DUCTS: No significant abnormality. PANCREAS: No significant abnormality. SPLEEN: No significant abnormality. ADRENALS: No significant abnormality. RIGHT KIDNEY and URETER: No significant abnormality. LEFT KIDNEY and URETER: No significant abnormality. STOMACH and SMALL BOWEL: Gastric bypass procedure noted. COLON: No significant abnormality. PERITONEUM: No free fluid. No free air. No fluid collection. LYMPH NODES: No significant adenopathy. AORTA and ARTERIES: No significant abnormality. IVC and VEINS: No significant abnormality. URINARY BLADDER: No significant abnormality. REPRODUCTIVE ORGANS: No significant abnormality. ADDITIONAL FINDINGS: None. SKELETAL SYSTEM: No significant abnormality. IMPRESSION: 1. Severe fatty liver. 2. Cholelithiasis. 3. No ascites appreciated. No evidence of small bowel obstruction. Signer Name: Ed Lopez MD Signed: 03/29/2022 3:29 PM Workstation Name: [employer]
[2022-03-29 17:37] LABS: Hepatitis B Surface Antigen Non-Reactive (Negative)
--- NOTE | 2022-03-29 19:06 | Electrocardiograph Report ---
[facility] Test Date: 2022-03-28 Test Time: 08:25:23 Pat Name: NKECHI MEI Department: Room: A469 Gender: F Brim Plater: [id number] : 1975 Requested By: ED DOC Order Number: [id number] Reading MD: Yvonne Marie Measurements Intervals [place] Rate: 100 P: 66 [place]: 117 QRS: 48 QRSD: 86 T: 25 QT: 401 QTc: 518 Interpretive Statements Sinus tachycardia Prolonged QT interval No previous ECG available for comparison Electronically Signed On 03-29-2022 19:06:07 EDT by Yvonne Marie
[2022-03-29] MEDS: FAMOTIDINE 20 MG TAB PO SCH (21:43)
[2022-03-30 05:05] LABS: Alanine Aminotransferase 22 units/L (7-56); Albumin 2.2 g/dL (3.9-5); Blood Urea Nitrogen 8 mg/dL (7-17); Calcium 8.2 mg/dL (8.4-10.2); Chol/HDL Ratio 4.03 %; HDL Cholesterol 29 mg/dL (40-59); Hemolysis Index 4; LDL Cholesterol,Direct 47 mg/dL (50-130)
[2022-03-30 05:10] LABS: BUN/Creatinine Ratio 13
[2022-03-30 05:17] VITALS: BP 156/87
[2022-03-30] MEDS: INSULIN LISPRO 100 UNIT/ML SUB-Q SCH ×2 (10:10→13:32)
[2022-03-30] MEDS: FAMOTIDINE 20 MG TAB PO SCH (10:30)
--- NOTE | 2022-03-30 10:30 | Progress Note ---
Assessment and Plan - Patient Problems (1) Atypical chest pain Current Visit: Yes Status: Acute Plan to address problem: Patient presented with atypical chest pain, serial ECGs are normal, serial troponin levels x3 were normal. Lexiscan thallium stress test was normal. Echocardiogram showed normal left ventricular systolic function, ejection fraction 55 to 60%. No further cardiac work-up, stable for cardiac discharge. Subjective Date of service: 03/30/22 Principal diagnosis: CP Interval history: Patient is comfortable, no further chest pain. It would be recalled that she had a Lexiscan stress test yesterday that was normal. Echocardiogram also showed normal left ventricular systolic function, ejection fraction 55 to 60%. Objective Vital Signs Temp Pulse Resp Resp BP Pulse Ox 03/30/22 04:42 98.2 F 100 H 20 156/87 98 03/29/22 22:53 98.2 F 94 H 18 139/77 98 03/29/22 20:13 95 03/29/22 20:07 75 03/29/22 19:54 98.3 F 97 H 20 156/87 97 03/29/22 14:00 94 03/29/22 13:30 16 03/29/22 13:00 16 - Physical Examination HEENT: Positive: PERRL Neck: Positive: neck supple Cardiac: Positive: Reg Rate and Rhythm Lungs: Positive: clear to auscultation Neuro: Positive: Grossly Intact Abdomen: Positive: Soft Skin: Positive: Clear Extremities: Absent: edema - Labs and Meds Cardiac Enzymes 03/30/22 Range/Units 04:09 AST 54 H (5-40) units/L Lipids 03/30/22 Range/Units 04:09 Triglycerides 156 H (2-149) mg/dL Cholesterol 117 (50-199) mg/dL HDL Cholesterol 29 L (40-59) mg/dL Cholesterol/HDL Ratio 4.03 % Comprehensive Metabolic Panel 03/30/22 Range/Units 04:09 Sodium 138 (137-145) mmol/L Potassium 3.4 L (3.6-5.0) mmol/L Chloride 99.7 (98-107) mmol/L Carbon Dioxide 26 (22-30) mmol/L BUN 8 (7-17) mg/dL Creatinine 0.6 (0.6-1.2) mg/dL Glucose 83 (65-100) mg/dL Calcium 8.2 L (8.4-10.2) mg/dL AST 54 H (5-40) units/L ALT 22 (7-56) units/L Alkaline Phosphatase 246 H (35-129) units/L Total Protein 6.5 (6.3-8.2) g/dL Albumin 2.2 L (3.9-5) g/dL
[2022-03-30] MEDS: ASPIRIN EC 325 MG TAB PO SCH (10:31)
--- NOTE | 2022-03-30 12:09 | Discharge Summary ---
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 Hospitalization Condition: Stable Hospital course: #Atypical chest pain Stress test is negative for ischemia -TTE: LVEF 50-55%, mild pulm HTN Cardiology cleared for discharge Noncardiac chest pain probably secondary to GERD #Elevated liver enzymes; trending down #Severe abdominal pain -AST/ALT 2:1; patient denies alcohol abuse -CT abd shows severe hepatic steatosis -lipid and acute hepatitis panel ordered -repeat CMP in AM #GERD; Protonix #Type II Diabetes mellitus -SSI + accuchecks #Hypertension -will restart home medications pending med reconciliation #Hypokalemia #Hypomagnesemia #Hypocalcemia -will replete and monitor #Obesity #History of gastric bypass surgery - Counseled patient on the importance of weight loss, incorporating exercise, and dietary changes (lean meats, fresh fruits and vegetables, and water intake). Patient expresses understanding. - Time: +15 min #Advanced care planning -Disease education conducted, care plan discussed, diagnoses discussed, prognosis discussed, and patient acknowledges understanding with care plan -Time: +30 min Disposition: 01 HOME / SELF CARE / HOMELESS Final Discharge Diagnosis (Prints w/discharge instructions): Atypical chest pain/stress test negative/probably secondary to GERD. Transaminitis/elevated LFTs; trending down. Abdominal pain/resolved. GERD. Type 2 diabetes mellitus. Hypertension. Hypokalemia corrected. Hypomagnesemia corrected. Hypocalcemia improved. Obesity; BMI 38.4. History of gastric bypass surgery/stable Time spent for discharge: 35 minutes Exam - Constitutional Vitals: Temp Pulse Resp BP Pulse Ox 98.2 F 100 H 20 156/87 98 03/30/22 04:42 03/30/22 04:42 03/30/22 04:42 03/30/22 04:42 03/30/22 04:42 Plan Activity: advance as tolerated Diet: other (Cardiac diet as tolerated) Additional Instructions: If you have worsening symptoms contact MD or go to the nearest emergency room as needed. Advised to see private GI evaluation of noncardiac chest pain/GERD. 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 Advised diet modification, exercise as tolerated and weight reduction when you are medically stable. Follow up with: PRIMARY CARE, [Primary Care Provider] - 3-5 Days SADE BENNETT MD [Staff Physician] - 7 Days GALEN CAO MD [Staff Physician] - 14 Days Prescriptions: Famotidine [Pepcid] 20 mg PO BID #60 tablet traMADoL [Ultram 50 MG tab] 50 mg PO Q6H PRN #14 tablet PRN Reason: Pain, Moderate (4-6) Ondansetron [Zofran Odt] 4 mg PO Q8HR #15 tab.yaradis
[2022-03-30] MEDS ORDERED: POTASSIUM CHLORIDE ER 20 MEQ TAB PO SCH (12:30)
[2022-03-30 13:18] LABS: Hepatitis C Virus Antibody Non-Reactive (NonReactive)
--- NOTE | 2022-03-30 13:42 | Electrocardiograph Report ---
[facility] Test Date: 2022-03-29 Test Time: 07:07:32 Pat Name: NKECHI MEI Department: Room: A469 1 Gender: F Optometric Tech: JUAN M : 1975 Requested By: MENDY RASHID Order Number: [id number] Reading MD: Yvonne Marie Measurements Intervals [place] Rate: 96 P: 49 WV: 114 QRS: 37 QRSD: 92 T: 22 QT: 395 QTc: 500 Interpretive Statements Sinus rhythm Compared to ECG 03/28/2022 08:25:23 No significant change Electronically Signed On 03-30-2022 13:41:37 EDT by Yvonne Marie
--- NOTE | 2022-03-30 13:49 | Electrocardiograph Report ---
[facility] Test Date: 2022-03-29 Test Time: 11:49:31 Pat Name: NKECHI MEI Department: Room: A469 1 Gender: F Director Sales And Marketing: JUAN M : 1975 Requested By: MENDY RASHID Order Number: [id number] Reading MD: Yvonne Marie Measurements Intervals [place] Rate: 102 P: 50 RI: 114 QRS: 39 QRSD: 92 T: 22 QT: 383 QTc: 499 Interpretive Statements Sinus tachycardia Compared to ECG 03/29/2022 07:07:32 No significant change Electronically Signed On 03-30-2022 13:49:03 EDT by Yvonne Marie
== END 2022-03-30 15:30 | disposition home or self-care (01) | DRG 392 ==
LOC: ED 07:50 → 4A 23:17
PROVIDERS: ADMIT Internal Medicine Geriatric Medicine; ATTEND Internal Medicine
DX: K21.9 Gastro-esophageal reflux disease without esophagitis (principal); E87.6 Hypokalemia; E83.42 Hypomagnesemia; I10 Essential (primary) hypertension; E66.9 Obesity, unspecified; Z68.38 Body mass index [BMI] 38.0-38.9, adult; E83.51 Hypocalcemia; E11.9 Type 2 diabetes mellitus without complications
CPT/HCPCS: 36415; 71046; 71275; 74176; 78452; 80048; 80053; 80061; 80074; 82550; 82553; 82962; 83690; 83735; 84484; 85007; 85025; 85379; 85610; 85730; 93005; 93017; 93306; G0378; A9502; C8929; J0610; J1170; J1650; J2270; J2405; J2785; J3475; J3480; Q0169; Q9967; U0003